=== PATIENT | female | born 1960 | race Caucasian/White ===

== ENCOUNTER 2021-06-05 09:44 | Emergency (ER) | payer OTHER, SELFPAY ==
[2021-06-05 09:56] VITALS: BP 103/56; PULSE 74; RESP 16; TEMP 36.8; O2SAT 100
--- NOTE | 2021-06-05 09:57 | ED.URI ---
HPI - URI/Sore Throat General Chief Complaint: Upper Respiratory Infection Stated Complaint: congestion Time Seen by Provider: 06/05/21 09:57 Source: patient and RN notes reviewed History of Present Illness HPI Narrative: Patient is a 61-year-old female who presents the urgent care with complaints of congestion, cough, chest congestion and rhinorrhea. Patient denies of any fever, chills, nausea, vomiting. Denies of any shortness of breath or chest pain. Patient is a current smoker. States that she has not had any exposure to Covid or influenza but has exposure to RSV. Patient states symptoms started approximately 1 week ago. Patient has not taken anything [id number] for her symptoms. No other acute complaints. No acute distress noted. Patient aware of the plan of care. Some parts of this dictation were generated by voice recognition software and may contain typographical and/or grammatical inaccuracies. Related Data Allergies Allergy/AdvReac Type Severity Reaction Status Date / Time No Known Allergies Allergy Unverified 01/14/16 16:02 Review of Systems Review of Systems: CONSTITUTIONAL: Denies fever, chills, or sweats. EYES: Denies visual changes, redness, or discharge. ENT: Reports of rhinorrhea, nasal congestion, postnasal drainage CARDIOVASCULAR: Denies chest pain, palpitations, or edema. RESPIRATORY: Reports a wet cough GASTROINTESTINAL: Denies abdominal pain, nausea, vomiting, or diarrhea. GENITOURINARY: Denies dysuria or hematuria. SKIN: Denies rash or itching. MUSCULOSKELETAL: Denies back pain, joint pain, or myalgia. NEUROLOGIC: Denies headache, numbness, or weakness. All other systems reviewed are negative, except as documented in HPI. PMFSH Comments At the time of my signature, I reviewed and agree with the nursing past medical, surgical, social, and family history. There is no relevant family history pertinent to the patient complaint. Exam Narrative: GENERAL: This is a well-nourished, well-developed patient, in no apparent distress. HEAD: normocephalic, atraumatic. Mild frontal sinus pressure EYES: PERRL. Sclera clear/white. Vision is grossly intact. EARS: External ears normal, auditory canals clear and without drainage, TMs normal without perforation. Hearing grossly intact. NOSE: External nose normal with no obvious nasal discharge, mild erythema noted to bilateral nares, clear rhinorrhea. THROAT: Mucous membranes moist, posterior pharynx clear. Mild postnasal drainage NECK: Neck supple CARDIOVASCULAR: Regular rate and rhythm without murmurs, gallops, or rubs. RESPIRATORY: Transitory wheeze to left upper lobe and coarse crackles throughout SKIN: warm, intact with no suspicious lesions or rash, good texture and turgor. NEURO: awake, alert, and oriented to person, place and time. There were no obvious focal neurologic abnormalities. EXTREMITIES: No clubbing, cyanosis, or edema. Course Vital Signs Vital signs: Vital Signs Temperature 98.3 F 06/05/21 09:56 Pulse Rate 74 06/05/21 09:56 Respiratory Rate 16 06/05/21 09:56 Blood Pressure 103/56 L 06/05/21 09:56 Pulse Oximetry 100 06/05/21 09:56 Temperature 98.3 F 06/05/21 09:56 Pulse Rate 74 06/05/21 09:56 Respiratory Rate 16 06/05/21 09:56 Blood Pressure 103/56 L 06/05/21 09:56 Pulse Oximetry 100 06/05/21 09:56 Reviewed MDM - URI/Sore Throat MDM Narrative Medical decision making narrative: Advised the patient to complete oral steroid regimen as prescribed. Complete the antibiotic regimen as prescribed. Be sure to eat and drink with medications to avoid nausea and upset stomach. Use the inhaler as needed for shortness of breath or wheezing. May use [id number] Flonase nasal spray or Mucinex as needed for symptom relief. If you develop any increase in symptoms associated with persistent cough, shortness of breath, chest pain, fever?go to the emergency room. Follow-up with your PCP within 2 to 5 days or for
== END 2021-06-05 10:10 | disposition home or self-care (01) ==
PROVIDERS: Emergency Provider Nurse Practitioner Family
DX: J40 Bronchitis, not specified as acute or chronic (principal)
CPT/HCPCS: 99203; G0463